=== PATIENT | female | born 1990 | race Asian ===

== ENCOUNTER 2019-04-02 10:47 | Inpatient (IN) | payer MEDICAID ==
[~2019-04-02] VITALS: Ht 162.6 cm; Wt 54.9 kg
[2019-04-02 11:13] VITALS: Ht 162.6 cm; Wt 54.9 kg
[2019-04-02 11:25] LABS: BASOPHIL % 0.2 % (0-2); PLATELET COUNT 229 x10^3mcL (130-400); RED CELL DISTRIBUTION WIDTH 13.6 % (11.5-14.5)
[2019-04-02 11:52] LABS: CALCIUM 8.3 mg/dL (8.5-10.1); CARBON DIOXIDE 28.6 mmol/L (21-32); CHLORIDE SERUM 103 mmol/L (98-107); CREATININE SERUM 0.5 mg/dL (0.6-1.0); GFR1 > 60 mL/min; GLUCOSE SERUM 98 mg/dL (74-106); POTASSIUM SERUM 3.5 mmol/L (3.5-5.1); SODIUM SERUM 139 mmol/L (136-145)
[2019-04-02 11:56] LABS: ALBUMIN 3.7 g/dL (3.4-5.0); ALKALINE PHOSPHATASE 58 U/L (46-116); ALT/SGPT 21 U/L (14-59); AST/SGOT 12 U/L (15-37); BILIRUBIN TOTAL 0.55 mg/dL (0.20-1.00); LIPASE 95 IU/L (73-393); TOTAL PROTEIN, SERUM 7.9 g/dL (6.4-8.2)
--- NOTE | 2019-04-02 13:41 | NUR ---
PT PRIMARILY SPEAKS HEBREW MANDLETSGROOP, CESSPOOL CLEANER PHONE USED FOR EVALUATION. PT PRESENTS TO ED WITH C/O RLQ ABDOMINAL PAIN SINCE YESTERDAY AT 2AM. PT STS PAIN IS 5/10 AND ALSO RADIATES TO MID EPIGASTRIC AREA. PT REPORTS PAIN UPON PALPATION OF RLQ. PT DENIES N/V/D/C, FEVER, SOB, DYSURIA, OR DIZZINESS. PT AAOX4, RESP E/U, NO ACUTE DISTRESS NOTED AT THIS TIME, WILL CONTINUE TO MONITOR.
--- NOTE | 2019-04-02 14:00 | NUR ---
PT OFF FLOOR TAKEN FOR CT SCAN VIA WHEELCHAIR.
--- NOTE | 2019-04-02 15:10 | NUR ---
PT SITTING UP ON [place], AAOX4, RESP E/U, NO ACUTE DISTRESS NOTED AT THIS TIME, WILL CONTINUE TO MONITOR.
--- NOTE | 2019-04-02 17:13 | NUR ---
PT AMBULATED TO RESTROOM, STEADY GAIT NOTED, AAOX4, RESP E/U, NO ACUTE DISTRESS NOTED AT THIS TIME.
--- NOTE | 2019-04-02 17:45 | NUR ---
PER ADVISORY SERVICES ASSOCIATENIGEL BROWN PT WILL BE GOING DIRECTLY TO SURGERY. CHARGE NURSE SHAWANDA NOTIFIED.
--- NOTE | 2019-04-02 18:15 | NUR ---
REPORT GIVEN TO NIGEL COLLINS ON MED SURG UNIT. DENNIS TOLD PT HAS BEEN TAKEN TO OR FIRST.
[2019-04-02 21:14] VITALS: BP 99/60
--- NOTE | 2019-04-02 21:17 | NUR ---
RECEIVED PT FROM OR VIA PINA. ORIENTED PT TO ROOM AND SURROUNDINGS. IV NOTED TO RAC PATENT AND INTACT. INSTRUCTED PT ON THE USE OF CALL LIGHT FOR ASSISTANCE. ENDORSED PT TO PRIMARY NURSE CODY
[2019-04-03 05:18] VITALS: BP 88/55
--- NOTE | 2019-04-03 06:01 | NUR ---
PATIENT RESTING IN BED. RESPIRATION EVEN AND UNLABORED, ON ROOM AIR. DENIES PAIN AT THIS TIME. IV SITE NO SIGN OF INFILTRATION. ASSISTED WITHN NEEDS. SAFETY OBSERVED. PLACED BED IN THE LOWEST POSITON. SURGICAL INCISION SITE TO ABDOMEN NO SIGN OF BLEEDING.
[2019-04-03 06:18] LABS: BASOPHIL % 0.1 % (0-2); PLATELET COUNT 191 x10^3mcL (130-400); RED CELL DISTRIBUTION WIDTH 13.4 % (11.5-14.5)
[2019-04-03 06:34] LABS: CALCIUM 7.7 mg/dL (8.5-10.1); CARBON DIOXIDE 21.8 mmol/L (21-32); CHLORIDE SERUM 106 mmol/L (98-107); CREATININE SERUM 0.6 mg/dL (0.6-1.0); GFR1 > 60 mL/min; GLUCOSE SERUM 111 mg/dL (74-106); PHOSPHOROUS 4.8 mg/dL (2.5-4.9); POTASSIUM SERUM 3.4 mmol/L (3.5-5.1); SODIUM SERUM 140 mmol/L (136-145)
--- NOTE | 2019-04-03 07:29 | NUR ---
RECEIVED IN NO RESP. DISTRESS. AWAKE, ALERT AND ORIENTED. MANDARIN SPEAKING BUT ABLE TO MAKE NEEDS KNOWN. NO C/O PAIN OR DISCOMFORT AT THIS TIME. INCISION SITES WITH DERMABOND INTACT. BS HYPOACTIVE X4Q. NO GAS YET. IVF INFUSING WELL. FAMILY AT BEDSIDE. CALL LIGHT WITHIN REACH. WILL CONTINUE WITH PLAN OF CARE.
[2019-04-03 07:56] VITALS: BP 90/45
[2019-04-03 12:00] VITALS: BP 113/79
--- NOTE | 2019-04-03 13:07 | NUR ---
TOLERATED WELL WITH CLEAR LIQ. DIET. NO N/V NOR ABD. PAIN. FAMILY AT BEDSIDE. PT ENCOURAGED TO AMBULATE TOLERATED.
[2019-04-03 16:15] VITALS: BP 101/63
--- NOTE | 2019-04-03 18:33 | NUR ---
PT REMAINS IN NO DISTRESS, AWAKE AND ALERT. NO CHANGES IN VS. NO C/O PAIN OR DISCOMFORT. TOLERATING WELL WITH LIQ. DIET. NO N/V . IVF INFUSING WELL AND SITE CLEAR. CALL LIGHT WITHIN REACH. WILL BE ENDORSED TO INCOMING SHIFT.
--- NOTE | 2019-04-03 19:05 | NUR ---
RECEIVED PT FROM PREVIOUS SHIFT NURSE. PT AOX4. DENIES [place]/DIZZINESS. MED SURG PT, DENIES CP/PRESSURE. DENIES SOB/DIFFICULTY BREATHING, ON RA. INCISION NOTED TO ABD WITH 3 SMALL INCISIONS AND DERMABOND. IV TO RAC, INTACT AND PATENT. BED IN LOWEST POSITION. CALL LIGHT WITHIN REACH. WILL CONTINUE TO MONITOR.
[2019-04-03 19:26] VITALS: BP 91/53
--- NOTE | 2019-04-04 01:11 | NUR ---
PT RESTING IN BED. RR EVEN AND UNLABORED. IN NO ACUTE DISTRESS. CALL LIGHT WITHIN REACH. BED IN LOWEST POSITION. WILL CONTINUE TO MONITOR.
--- NOTE | 2019-04-04 02:16 | NUR ---
RECEIVED PT FROM JORDIN RN, PT LAYNG DOWN IN BED WITH EYES CLOSED. BRETHING EVEN AND UNLABORED ON RA. NO ACUTE DISTRESS NOTED. BED AT LOWEST SETTING. SIDE RAILS X2 UP. CALL LIGHT WITHING REACH. WILL CONT TO MONITOR.
[2019-04-04 05:05] VITALS: BP 98/57
--- NOTE | 2019-04-04 06:25 | NUR ---
PT SLEPT AT INTERVALS THROUGHOUT THE NIGHT, BREATHING EVEN AND UNLABORED ON RA. NO SIGNIFICANT CHANGE DURING THE NIGHT. ALL NEEDS ASSESSED AND ATTENDED TO. IV TO RAC INFUSING WELL. SITE WNL. BED AT LOWEST SETTING. SIDE RAILS X2 UP. CALL LIGHT WITHING REACH. WILL ENDORSE CARE TO AM NURE.
[2019-04-04 06:51] LABS: BASOPHIL % 0.3 % (0-2); PLATELET COUNT 178 x10^3mcL (130-400); RED CELL DISTRIBUTION WIDTH 13.6 % (11.5-14.5)
[2019-04-04 06:55] LABS: CALCIUM 7.1 mg/dL (8.5-10.1); CARBON DIOXIDE 25.6 mmol/L (21-32); CHLORIDE SERUM 109 mmol/L (98-107); CREATININE SERUM 0.5 mg/dL (0.6-1.0); GFR1 > 60 mL/min; GLUCOSE SERUM 96 mg/dL (74-106); MAGNESIUM 1.8 mg/dL (1.8-2.4); PHOSPHOROUS 2.2 mg/dL (2.5-4.9); POTASSIUM SERUM 3.2 mmol/L (3.5-5.1); SODIUM SERUM 142 mmol/L (136-145)
[2019-04-04 07:23] VITALS: BP 92/60
--- NOTE | 2019-04-04 07:55 | NUR ---
RECEIVED PATIENT RESTING IN BED, NO ACUTE DISTRESS NOTED. PATIENT DENIES PAIN. LUNG SOUNDS CTA. BOWEL SOUNDS ACTIVEX4, PATIENT STATES PASSING GAS & BURPING. INCISIONS X4 TO ABDOMEN, CDI/NO DRAINAGE NOTED. NS IV INFUSING TO RAC AT 100ML/HR, IV SITE CDI &PATENT, NO S/S OF INFILTRATION. CALL LIGHT WITHIN REACH, BED IN LOW POSITION, WILL CONTINUE TO MONITOR.
--- NOTE | 2019-04-04 08:30 | NUR ---
EARTH MOVING MACHINE OPERATOR DAVID AWARE PATIENTS K WAS 3.2. WILL CARRY OUT ANY NEW ORDERS PLACED.
--- NOTE | 2019-04-04 11:57 | NUR ---
PATIENT SITTING UP AT BEDSIDE, NO ACUTE DISTRESS NOTED. PATIENT DENIES PAIN. PATIENT STATED SHES BEEN AMBULATING HALLWAYS. ALL NEEDS MET AT THIS TIME. CALL LIGHT WITHIN REACH, BED IN LOW POSITION, WILL CONTINUE TO MONITOR.
--- NOTE | 2019-04-04 13:45 | NUR ---
DR. CRUZ AT [facility], SPOKE WITH PATIENT REGARDING PLAN OF CARE. DR. CRUZ RECOMMENDED FOR PATIENT TO STAY OVER NIGHT TO MONITOR HGB. ALL QUESTIONS AND CONCERNS ADDRESSED. WILL CONTINUE TO MONITOR.
--- NOTE | 2019-04-04 15:20 | NUR ---
IV TO RAC BECAME INFILTRATED, IV CATH REMOVED BY NIGEL ERAZO, NEW IV INSERTED BY NIGEL ERAZO X1 ATTEMPT, 22G TO LFA. IV FLDS CONTINUED AT THIS TIME.
[2019-04-04 16:37] VITALS: BP 97/64
[2019-04-04 17:22] VITALS: BP 140/91
--- NOTE | 2019-04-04 18:00 | NUR ---
PATIENT RESTING IN BED COMFORTABLY, PATIENT DENIES PAIN. NO ACUTE DISTRESS NOTED. PATIENT DENIES SOB, ON ROOM AIR. PATIENTS INCISIONS TO ABDOMEN, CDI/ NO DRAINAGE NOTED. NS IV INFUSING TO LFA AT 100ML/HR, IV SITE CDI &PATENT, NO S/S OF INFILTRATION. CALL LIGHT WITHIN REACH, BED IN LOW POSITION, WILL CONTINUE TO MONITOR.
--- NOTE | 2019-04-04 19:30 | NUR ---
PT RECIEVED FROM DAY NURSE. PT RESTING IN BED AT THIS TIME. DENIES ANY PAIN OR DISCOMFORT. A/OO X4, CALM AND COOPERATIVE AT THIS TIME. PT MED/SURG, DENIES CP, NV, DIZZINESS, AND PALPATATIONS. BREATHING E/U ON RA. ABD SOFT AND ROUND, PT STATES SHE HAD A BM TODAY. FORMED. DENIES PAIN TO PALPATATION. 4 INCISION SITES NOTED, COVERED WITH DERMABOND. IV TO LFA, INTACT AND INFUSING. BED AT LOWEST POSITION. CALL LIGHT WITHIN REACH. WILL CONTINUE TO MONITOR.
[2019-04-04 21:03] VITALS: BP 100/55
--- NOTE | 2019-04-05 | NUR ---
PT RESTING IN BED AT THIS TIME. DENIES PAIN OR DISCOMFORT. BREATHING E/U ON RA. NO SIGNS OF ACUTE DISTRESS AT THIS TIME. BED AT LOWEST POSITION. CALL LIGHT WITHIN REACH. WILL CONTINUE TO MONITOR.
[2019-04-05 04:12] VITALS: BP 90/51
--- NOTE | 2019-04-05 06:10 | NUR ---
PT RESTING IN BED AT THIS TIME. DENIES PAIN OR DISCOMFORT. BREATHING E/U ON RA. NO SIGNS OF ACUTE DISTRESS AT THIS TIME. ALL NEEDS AND CONCERN ADDRESSED THIS SHIFT. BED AT LOWEST POSITION. CALL LIGHT WITHIN REACH. WILL ENDORSE TO DAY NURSE.
[2019-04-05 07:22] LABS: BASOPHIL % 0.6 % (0-2); PLATELET COUNT 216 x10^3mcL (130-400); RED CELL DISTRIBUTION WIDTH 13.2 % (11.5-14.5)
--- NOTE | 2019-04-05 07:43 | NUR ---
RECIEVED REPORT FROM [facility] NURSE. PATIENT SLEEPING IN BED. SAFETY PRECAUTIONS IN PLACE.
[2019-04-05 08:00] LABS: CALCIUM 8.1 mg/dL (8.5-10.1); CARBON DIOXIDE 24.4 mmol/L (21-32); CHLORIDE SERUM 108 mmol/L (98-107); CREATININE SERUM 0.5 mg/dL (0.6-1.0); GFR1 > 60 mL/min; GLUCOSE SERUM 87 mg/dL (74-106); POTASSIUM SERUM 3.4 mmol/L (3.5-5.1); SODIUM SERUM 142 mmol/L (136-145)
[2019-04-05 08:08] VITALS: BP 97/51
--- NOTE | 2019-04-05 08:24 | NUR ---
PERFORMED MORNING ASSESSMENT ON PATIENT. PATIENT STATES SHE HAD BOWEL MOVEMENT IN THE MORNING. NO COMPLAINTS OF PAIN. FOUR ABD INCISIONS RT TO LAP APPY COVERED WITH DERMABOND AND PEER SPECIALIST. INCISIONS HEALING WELL. PATIENT AWAKE AND ORIENTED, ABLE TO COMMUNICATE. SLIGHT LANGUAGE BARRIER. PATIENT SPEAKS LIMITED ESTONIAN. IV TO LEFT FOREARM PATENT AND INTACT RUNNING NS AT 100/HR. PATIENT IS CALM AND PLEASENT.
--- NOTE | 2019-04-05 13:40 | NUR ---
IV DISCONTINUED AND REMOVED INTACT IN PREPARATION FOR DISCHARGE. EDUCATION PROVIDED ON FOLLOW UP CARE WITH SURGEON. EDUCATION PROVIDED ON DISCHARGE MEDICATION TO BE PICKED UP AT THE PHARMACY.
[2019-04-05 14:14] VITALS: BP 97/51
[2019-04-05] MEDS ORDERED: FLA500 PO (14:29)
== END 2019-04-05 16:03 | disposition home or self-care (01) | DRG 233 ==
LOC: ED 10:47 → MU 16:04
PROVIDERS: Surgery; ADMIT General Practice
PROC: 0DTJ4ZZ Resection of Appendix, Percutaneous Endoscopic Approach (ICD-10-PCS; principal; 2019-04-02 19:00)
DX: K35.30 Acute appendicitis with localized peritonitis, without perforation or gangrene (principal); E87.6 Hypokalemia
CPT/HCPCS: 90658; G0378; J0330; J0690; J0696; J2175; J2250; J2405; J2543; J2704; J2710; J3010; J3490; J7030; J7060; J7120; Q9967